=== PATIENT | male | born 1985 | race African-American/Black ===

== ENCOUNTER 2017-07-10 12:14 | Emergency (ER) | payer OTHER ==
[~2017-07-10] VITALS: Ht 175.3 cm; Wt 68.0 kg
[2017-07-10] MEDS ORDERED: TIZANIDINE HCL4 MG PO (12:52)
[2017-07-10] MEDS ORDERED: ULTRAM 50MG TAB50 MG PO (12:52)
[2017-07-10] MEDS ORDERED: MOBIC15 MG PO (12:52)
== END 2017-07-10 13:30 | disposition home or self-care (01) ==
LOC: ER 12:14
DX: M54.6 Pain in thoracic spine (principal); F17.210 Nicotine dependence, cigarettes, uncomplicated